=== PATIENT | female | born 1990 | race Caucasian/White ===

== ENCOUNTER 2024-04-18 03:29 | Emergency (ER) | payer SELFPAY ==
[~2024-04-18] VITALS: Ht 162.6 cm; Wt 81.6 kg
[2024-04-18 03:33] VITALS: BP 130/85; PULSE 114; RESP 18; TEMP 97.7; O2SAT 98
[2024-04-18 03:40] VITALS: BP 128/85; PULSE 110; RESP 18; TEMP 97.7; O2SAT 98
== END 2024-04-18 03:50 ==
LOC: MED 03:29
DX: R06.02 Shortness of breath (principal); Z02.89 Encounter for other administrative examinations
CPT/HCPCS: 99283